=== PATIENT | male | born 1985 | race Caucasian/White ===

== ENCOUNTER 2019-10-12 18:30 | Emergency (ER) | payer OTHER ==
[~2019-10-12] VITALS: Ht 177.8 cm; Wt 111.1 kg
[2019-10-12 18:32] VITALS: BP 144/98
--- NOTE | 2019-10-12 18:44 | NUR ---
33 YO MALE CO CHEST PAIN AND RIGHT LEG PAIN FOR 1 MONTH. PT STATES THAT THE PAIN IN HIS LEG IS 4/10 AND CHEST PAIN IS 7/10. PT HAS A HX OF SLEEP APENIA AND NO MEDS. NO REDNESS OR SWELLING NOTED. NO PAIN WITH FLEXION OF FEET.
--- NOTE | 2019-10-12 18:54 | NUR ---
ERMD BEDSIDE EVALUATING PT
--- NOTE | 2019-10-12 19:21 | NUR ---
RECEIVED REPORT FROM GLADYS [facility]OWN[facility]. TRANSFER OF CARE TO [facility]AD[facility]
--- NOTE | 2019-10-12 19:29 | NUR ---
Ultrasound at bedside.
[2019-10-12 19:39] LABS: CARBON DIOXIDE 29.1 mmol/L (21-32); CREATININE 1.2 mg/dL (0.6-1.3); POTASSIUM 4.1 mmol/L (3.5-5.1)
[2019-10-12 19:43] LABS: PROTHROMBIN TIME 10.4 secs (10.8-13.4)
[2019-10-12 19:45] LABS: ALBUMIN 3.9 g/dL (3.4-5.0); TOTAL BILIRUBIN 0.3 mg/dL (0.0-1.0)
[2019-10-12 19:46] LABS: BASOPHILS % (AUTO) 0.4 % (0.0-2.0); EOSINOPHILS # (AUTO) 0.1 K/uL (0-0.4); EOSINOPHILS % (AUTO) 0.9 % (0.0-4.0); HEMOGLOBIN 15.3 g/dL (12.0-18.0); LYMPHOCYTES # (AUTO) 2.2 K/uL (2.0-11.5); LYMPHOCYTES % (AUTO) 27.1 % (20.5-51.1); MEAN CORPUSCULAR HEMOGLOBIN 30 pg (27-31); MEAN CORPUSCULAR HGB CONC 34 g/dL (33-37); MEAN CORPUSCULAR VOLUME 87.4 fL (80-94); MONOCYTES # (AUTO) 0.6 K/uL (0.8-1.0); MONOCYTES % (AUTO) 7.1 % (1.7-9.3); NEUTROPHILS # (AUTO) 5.3 K/uL (1.8-7.7); NEUTROPHILS % (AUTO) 64.5 % (42.2-75.2); PLATELET COUNT (AUTO) 309 K/uL (140-450); RED BLOOD CELL COUNT(AUTO) 5.15 MIL/uL (4.20-6.10); RED CELL DISTRIBUTION WIDTH 13.7 % (11.6-13.7); WHITE BLOOD COUNT (AUTO) 8.3 K/uL (4.8-10.8)
[2019-10-12 21:35] VITALS: BP 139/79
--- NOTE | 2019-10-12 21:35 | NUR ---
Patient discharged with v/s stable. Written and verbal after care instructions given and explained. Patient verbalized understanding. Ambulatory with steady gait. All questions addressed prior to discharge. Advised to follow up with PMD.
== END 2019-10-12 21:35 | disposition home or self-care (01) ==
LOC: MED 18:30
DX: R07.89 Other chest pain (principal); M79.661 Pain in right lower leg; Z88.0 Allergy status to penicillin
CPT/HCPCS: 36415; 71045; 80053; 83880; 84484; 85025; 85610; 85730; 93005; 93971; 99285; Q0092

== ENCOUNTER 2019-12-09 07:33 | Emergency (ER) | payer OTHER ==
[~2019-12-09] VITALS: Ht 177.8 cm; Wt 108.5 kg
[2019-12-09 07:43] VITALS: BP 141/91
[2019-12-09] MEDS ORDERED: MAG SULF 2000 MG/WATER PREMIX 50 ML IV ONE (08:25)
[2019-12-09] MEDS ORDERED: NACL 0.9% 1,000 ML IV ONE (08:25)
[2019-12-09] MEDS ORDERED: KETOROLAC 15 MG/ML VIAL IVP ONE (08:25)
[2019-12-09] MEDS ORDERED: PROCHLORPERAZINE 10 MG/2 ML VIAL IVP ONE (08:25)
[2019-12-09 09:59] VITALS: BP 141/91
== END 2019-12-09 09:59 | disposition home or self-care (01) ==
LOC: MED 07:33
DX: R51 Headache (principal); G47.30 Sleep apnea, unspecified; K21.9 Gastro-esophageal reflux disease without esophagitis; R03.0 Elevated blood-pressure reading, without diagnosis of hypertension
CPT/HCPCS: 96365; 96375; 99284; J0780; J1885; J3475; J7030

== ENCOUNTER 2019-12-29 10:35 | Day surgery (SDC) | payer OTHER, SELFPAY ==
[~2019-12-29] VITALS: Ht 177.8 cm; Wt 104.3 kg
[2019-12-29] MEDS ORDERED: MIDAZOLAM 2 MG/2 ML VIAL ONE (13:33)
[2019-12-29] MEDS ORDERED: diphenhydrAMINE 50 MG/ML VIAL ONE (13:33)
[2019-12-29] MEDS ORDERED: LIDOCAINE VISCOUS 2% 20 ML UDC ONE (13:33)
[2019-12-29] MEDS ORDERED: fentaNYL citrate 0.05 MG/ML VIAL ONE (13:33)
[2019-12-29] MEDS ORDERED: fentaNYL citrate 0.05 MG/ML VIAL IVP ONE (14:10)
[2019-12-29] MEDS ORDERED: MIDAZOLAM 2 MG/2 ML VIAL IVP ONE (14:10)
== END 2019-12-29 14:38 | disposition home or self-care (01) ==
LOC: MDS 10:35 → MFCC 10:35 → MDS 14:38
PROVIDERS: ATTEND Internal Medicine Gastroenterology
DX: R10.84 Generalized abdominal pain (principal); K21.9 Gastro-esophageal reflux disease without esophagitis; Z88.0 Allergy status to penicillin; Z79.899 Other long term (current) drug therapy; Z11.59 Encounter for screening for other viral diseases
CPT/HCPCS: 43239; J2250; J3010; U0003; J1200

== ENCOUNTER 2022-05-07 01:15 | Emergency (ER) | payer OTHER ==
[~2022-05-07] VITALS: Ht 177.8 cm; Wt 108.9 kg
[2022-05-07 01:20] VITALS: BP 150/90
--- NOTE | 2022-05-07 01:24 | NUR ---
SEEN AND EXAMINED BY EDUARDO
--- NOTE | 2022-05-07 01:27 | NUR ---
TO LOBBY A/W BED AMBULATORY
[2022-05-07] MEDS ORDERED: KETOROLAC 30 MG/ML VIAL IM ONE (01:35)
--- NOTE | 2022-05-07 01:35 | NUR ---
MEDICATED As per ermds order
--- NOTE | 2022-05-07 02:29 | NUR ---
family called saying that pt is still in pain. er md made aware and asked to give pt cold pack
[2022-05-07] MEDS ORDERED: MORPHINE SULFATE 4 MG/ML SYR IM ONE (02:30)
[2022-05-07 03:35] VITALS: BP 128/80
== END 2022-05-07 03:35 | disposition home or self-care (01) ==
LOC: MED 01:15
DX: K91.89 Other postprocedural complications and disorders of digestive system (principal); R68.84 Jaw pain; K21.9 Gastro-esophageal reflux disease without esophagitis; Z88.0 Allergy status to penicillin; Y83.8 Other surgical procedures as the cause of abnormal reaction of the patient, or of later complication, without mention of misadventure at the time of the procedure
CPT/HCPCS: 96372; 99284; J1885; J2270